=== PATIENT | male | born 1990 ===

== ENCOUNTER 2020-07-09 19:17 | Emergency (ER) | payer OTHER, BC ==
--- NOTE | 2020-07-09 20:07 | CR ---
PROCEDURE INFORMATION: Exam: XR Left Finger(s) Exam date and time: 07/09/2020 7:42 PM Age: 30 years old Clinical indication: Pain; Finger(s); Left; Additional info: Pain, twisted by combative patient TECHNIQUE: Imaging protocol: XR Left fingers. Views: Minimum 2 views. COMPARISON: No relevant prior studies available. FINDINGS: Bones/joints: Normal. Soft tissues: Normal. IMPRESSION: No acute findings.
--- NOTE | 2020-07-09 20:09 | EDM.PDOC ---
ED HPI GENERAL MEDICAL PROBLEM - General Chief Complaint: Upper Extremity Injury/Pain Stated Complaint: LEFT THUMB INJURED Time Seen by Provider: 07/09/20 19:20 Source of Information: Reports: Patient History Limitations: Reports: No Limitations - History of Present Illness INITIAL COMMENTS - FREE TEXT/NARRATIVE: C/O pain to left thumb. Present in ED on private duty lpn with combative belligerent intoxicated patient. Thumb bent twisted by patient. - Related Data Allergies Allergy/AdvReac Type Severity Reaction Status Date / Time No Known Allergies Allergy Verified 07/09/20 19:28 Home Meds: Home Meds . [No Known Home Meds] 07/09/20 [History] Past Medical History - Past Health History Medical/Surgical History: Denies Medical/Surgical History Social & Family History - Tobacco Use Tobacco Use Status *Q: Unknown Ever Used Tobacco Review of Systems - Review of Systems Review Of Systems: Comprehensive ROS is negative, except as noted in HPI. ED EXAM, GENERAL - Physical Exam Exam: See Below Exam Limited By: No Limitations General Appearance: Alert, Mild Distress Ears: Hearing Grossly Normal Throat/Mouth: Normal Voice Neck: Full Range of Motion Respiratory/Chest: Normal Breath Sounds Extremities: Joint Swelling (left base thumb), Limited Range of Motion (increased pain with flexion /extension). No: Normal Range of Motion Neurological: Alert, Oriented Skin Exam: Warm, Dry, Intact. No: Ecchymosis ED TRAUMA EXTREMITY PROCEDURES - Splinting Left Thumb Pre-Procedure NV Status: Normal Post-Procedure NV Status: Normal Splint Material: Velcro Splint Design: Thumb Spica Applied & Form Fitted By: Nurse Provider Post-Splint Application NV Check: Good Position Complications: No Course - Vital Signs Last Recorded V/S: Last Vital Signs Temp 99.1 F 07/09/20 19:20 Pulse 72 07/09/20 19:20 Resp 18 07/09/20 19:20 BP Pulse Ox 97 07/09/20 19:20 - Re-Assessments/Exams Free Text/Narrative Re-Assessment/Exam: 07/10/20 01:30 thumb spica preform splint applied Departure - Departure Time of Disposition: 20:04 Disposition: Home, Self-Care 01 Condition: Good Clinical Impression: Left thumb sprain Qualifiers: Encounter type: initial encounter Sprain of finger site: unspecified site Qualified Code(s): S63.602A - Unspecified sprain of left thumb, initial encounter - Discharge Information *PRESCRIPTION DRUG MONITORING PROGRAM REVIEWED*: No *COPY OF PRESCRIPTION DRUG MONITORING REPORT IN PATIENT ABRAHAM: No Instructions: Thumb Sprain Referrals: PCP,None [Primary Care Provider] - Forms: ED Department Discharge Additional Instructions: tylenol 650mg every 4 hours as needed for discomfort clinic follow up next week if continued pain splint ice elevate Sepsis Event Note (ED) - Evaluation Sepsis Screening Result: No Definite Risk - Focused Exam Vital Signs: Vital Signs Temp Pulse Resp Pulse Ox 07/09/20 19:20 99.1 F 72 18 97
== END 2020-07-09 20:10 | disposition home or self-care (01) ==
LOC: DL.ED 19:17
DX: S63.602A Unspecified sprain of left thumb, initial encounter (principal); X50.1XXA Overexertion from prolonged static or awkward postures, initial encounter
CPT/HCPCS: 73140-FA; 99283